=== PATIENT | female | born 1950 | race Caucasian/White ===

== ENCOUNTER 2016-07-22 11:01 | Emergency (ER) | payer MEDICARE ==
[2016-07-22 11:05] VITALS: RESP 20
[2016-07-22] MEDS ORDERED: SODIUM CHLORIDE 0.9% 1,000 ML IV STA ×2 (11:17→13:05)
--- NOTE | 2016-07-22 11:23 | ED ---
Syncope HPI - General Chief Complaint: Syncope Stated Complaint: Fall Time Seen by Provider: 07/22/16 11:17 Source: patient, RN notes reviewed Mode of arrival: ambulatory Limitations: no limitations - History of Present Illness Initial Comments: This is a 66-year-old female with a prior history of a syncopal episode of low blood sugar many years ago who states she did eat a doughnut this morning prior to the events. She states she went downstairs to go to her car she felt lightheaded very hot and then passed out waking up about tenderness later on the ground. She complains of a bump on the back of her head no blurry vision no nausea no vomiting no focal weakness. No palpitations prior to the event. He is not on any diabetic medications. She denies any recent illnesses. She denies any neck or back pain at this time. MD Complaint: loss of consciousness - Related Data Home Medications Medication Instructions Recorded Confirmed Fexofenadine HCl [Joy Allergy] 180 mg PO DAILY 07/22/16 07/22/16 Ibuprofen [Motrin] 200 mg PO Q6HR PRN 07/22/16 07/22/16 Allergies Allergy/AdvReac Type Severity Reaction Status Date / Time Egg Derived Allergy Rash/Hives Verified 07/22/16 11:28 Review of Systems ROS Statement: Those systems with pertinent positive or pertinent negative responses have been documented in the HPI. ROS Other: All systems not noted in ROS Statement are negative. Past Medical History Past Medical History: No Reported History History of Any Multi-Drug Resistant Organisms: None Reported Past Surgical History: No Surgical Hx Reported Past Psychological History: No Psychological Hx Reported Smoking Status: Never smoker Past Alcohol Use History: None Reported Past Drug Use History: None Reported General Exam - General Exam Comments Initial Comments: This is a well developed well-nourished awake alert oriented 3 female she does have a [place] Coma Scale of 15 Limitations: no limitations General appearance: alert, in no apparent distress Head exam: Present: normocephalic, other (There is an area of contusion that is approximately 6 cm in diameter no step-off no crepitation no open wound or abrasion seen. This is over the occipital parietal scalp on the right side.) Eye exam: Present: normal appearance, PERRL, EOMI. Absent: scleral icterus, conjunctival injection, periorbital swelling ENT exam: Present: normal exam, mucous membranes moist Neck exam: Present: normal inspection. Absent: tenderness, meningismus, lymphadenopathy Respiratory exam: Present: normal lung sounds bilaterally. Absent: respiratory distress, wheezes, rales, rhonchi, stridor Cardiovascular Exam: Present: regular rate, normal rhythm, normal heart sounds. Absent: systolic murmur, diastolic murmur, rubs, gallop, clicks GI/Abdominal exam: Present: soft, normal bowel sounds. Absent: distended, tenderness, guarding, rebound, rigid Extremities exam: Present: full ROM, normal capillary refill, other ( Provisional abrasion seen over the proximal lateral right elbow no functional deficits full range of motion no tenderness palpation.). Absent: tenderness, pedal edema, joint swelling, calf tenderness Back exam: Present: normal inspection Neurological exam: Present: alert, oriented X3, CN II-XII intact. Absent: motor sensory deficit Psychiatric exam: Present: normal affect, normal mood Skin exam: Present: warm, dry, intact, normal color. Absent: rash Course Vital Signs 07/22/16 07/22/16 07/22/16 11:02 12:14 13:02 Temperature 98.1 F 98.8 F 98.1 F Pulse Rate 90 74 75 Respiratory 20 20 20 Rate Blood Pressure 163/82 144/80 122/64 O2 Sat by Pulse 98 95 94 L Oximetry 07/22/16 07/22/16 13:28 14:53 Temperature 97.7 F Pulse Rate 68 68 Respiratory 20 20 Rate Blood Pressure 144/66 140/66 O2 Sat by Pulse 94 L 95 Oximetry - Reevaluation(s) Reevaluation #1: 07/22/16 15:16 Reevaluation patient revealed that she was awake alert oriented 3 no complaints other than some localized pain to her scalp. CT the chest is ordered due to a elevated d-dimer. It was later found that the patient daughter also has elevated d-dimer every time she has blood drawn. EKG Findings - EKG Results: EKG: interpreted by [facility], sinus rhythm, normal axis, normal QRS, normal ST/T, no acute changes (Ventricular rate of 86 normal sinus rhythm ID interval 154 QRS duration 80 QT/QTC of 388/464 this is a normal-appearing EKG.) Medical Decision Making - Medical Decision Making Reevaluation reveals patient be awake alert oriented 3. I did a long discussion with her regarding the findings the presentation is consistent with a orthostatic vasovagal episode she was encouraged to drink more water and painful for her doctor return when necessary - Lab Data Result diagrams: 07/22/16 11:30 07/22/16 11:30 Lab Results 07/22/16 07/22/16 07/22/16 Range/Units 11:30 11:30 11:30 WBC 8.4 (3.8-10.6) k/uL RBC 5.47 H (3.80-5.40) m/uL Hgb 17.3 H (11.4-16.0) gm/dL Hct 50.1 H (34.0-46.0) % MCV 91.6 (80.0-100.0) fL MCH 31.6 (25.0-35.0) pg MCHC 34.5 (31.0-37.0) g/dL RDW 12.9 (11.5-15.5) % Plt Count 212 (150-450) k/uL Neutrophils % 75 % Lymphocytes % 17 % Monocytes % 5 % Eosinophils % 1 % Basophils % 1 % Neutrophils # 6.3 (1.3-7.7) k/uL Lymphocytes # 1.4 (1.0-4.8) k/uL Monocytes # 0.4 (0-1.0) k/uL Eosinophils # 0.1 (0-0.7) k/uL Basophils # 0.1 (0-0.2) k/uL PT (9.0-12.0) sec INR (<1.1) APTT (22.0-30.0) sec D-Dimer (<0.60) mg/L FEU Sodium 140 (137-145) mmol/L Potassium 4.1 (3.5-5.1) mmol/L Chloride 104 (98-107) mmol/L Carbon Dioxide 20 L (22-30) mmol/L Anion Gap 16 mmol/L BUN 24 H (7-17) mg/dL Creatinine 0.92 (0.52-1.04) mg/dL Est GFR (MDRD) Af Amer >60 (>60 ml/min/1.73 sqM) Est GFR (MDRD) Non-Af >60 (>60 ml/min/1.73 sqM) Glucose 136 H (74-99) mg/dL Calcium 9.2 (8.4-10.2) mg/dL Magnesium 2.3 (1.6-2.3) mg/dL Total Bilirubin 1.3 (0.2-1.3) mg/dL AST 46 H (14-36) U/L ALT 44 (9-52) U/L Alkaline Phosphatase 78 (38-126) U/L Total Creatine Kinase 119 (30-135) U/L CK-MB (CK-2) 0.7 (0.0-2.4) ng/mL CK-MB (CK-2) Rel Index 0.6 Troponin I <0.012 (0.000-0.034) ng/mL Total Protein 8.4 H (6.3-8.2) g/dL Albumin 4.8 (3.5-5.0) g/dL TSH 2.470 (0.465-4.680) mIU/L Urine Color Urine Appearance (Clear) Urine pH (5.0-8.0) Ur Specific [place] (1.001-1.035) Urine Protein (Negative) Urine Glucose (UA) (Negative) Urine Ketones (Negative) Urine Blood (Negative) Urine Nitrite (Negative) Urine Bilirubin (Negative) Urine Urobilinogen (<2.0) mg/dL Ur Leukocyte Esterase (Negative) Urine RBC (0-5) /hpf Urine WBC (0-5) /hpf Ur Squamous Epith Cells (0-4) /hpf Urine Bacteria (None) /hpf Hyaline Casts (0-2) /lpf Urine Mucus (None) /hpf 07/22/16 07/22/16 Range/Units 11:30 11:30 WBC (3.8-10.6) k/uL RBC (3.80-5.40) m/uL Hgb (11.4-16.0) gm/dL Hct (34.0-46.0) % MCV (80.0-100.0) fL MCH (25.0-35.0) pg MCHC (31.0-37.0) g/dL RDW (11.5-15.5) % Plt Count (150-450) k/uL Neutrophils % % Lymphocytes % % Monocytes % % Eosinophils % % Basophils % % Neutrophils # (1.3-7.7) k/uL Lymphocytes # (1.0-4.8) k/uL Monocytes # (0-1.0) k/uL Eosinophils # (0-0.7) k/uL Basophils # (0-0.2) k/uL PT 10.3 (9.0-12.0) sec INR 1.0 (<1.1) APTT 24.6 (22.0-30.0) sec D-Dimer 1.44 H (<0.60) mg/L FEU Sodium (137-145) mmol/L Potassium (3.5-5.1) mmol/L Chloride (98-107) mmol/L Carbon Dioxide (22-30) mmol/L Anion Gap mmol/L BUN (7-17) mg/dL Creatinine (0.52-1.04) mg/dL Est GFR (MDRD) Af Amer (>60 ml/min/1.73 sqM) Est GFR (MDRD) Non-Af (>60 ml/min/1.73 sqM) Glucose (74-99) mg/dL Calcium (8.4-10.2) mg/dL Magnesium (1.6-2.3) mg/dL Total Bilirubin (0.2-1.3) mg/dL AST (14-36) U/L ALT (9-52) U/L Alkaline Phosphatase (38-126) U/L Total Creatine Kinase (30-135) U/L CK-MB (CK-2) (0.0-2.4) ng/mL CK-MB (CK-2) Rel Index Troponin I (0.000-0.034) ng/mL Total Protein (6.3-8.2) g/dL Albumin (3.5-5.0) g/dL TSH (0.465-4.680) mIU/L Urine Color Yellow Urine Appearance Cloudy H (Clear) Urine pH 5.5 (5.0-8.0) Ur Specific [place] 1.022 (1.001-1.035) Urine Protein 1+ H (Negative) Urine Glucose (UA) Negative (Negative) Urine Ketones Negative (Negative) Urine Blood Negative (Negative) Urine Nitrite Negative (Negative) Urine Bilirubin Negative (Negative) Urine Urobilinogen <2.0 (<2.0) mg/dL Ur Leukocyte Esterase Negative (Negative) Urine RBC 1 (0-5) /hpf Urine WBC 4 (0-5) /hpf Ur Squamous Epith Cells 1 (0-4) /hpf Urine Bacteria Rare H (None) /hpf Hyaline Casts 3 H (0-2) /lpf Urine Mucus Few H (None) /hpf - Radiology Data Radiology results: report reviewed (I did review the imaging and reports no acute findings are seen including no evidence of pulmonary and was very CT the brain shows no acute findings other than a scalp contusion), image reviewed Disposition Clinical Impression: Vasovagal syncope, Syncope due to orthostatic hypotension, Dehydration, Scalp contusion, Concussion Disposition: HOME SELF-CARE Condition: Good Instructions: Dehydration (ED), Concussion (ED), Scalp Contusion in Adults (ED) , Syncope (ED)
[2016-07-22 11:44] LABS: Basophils # (A) 0.1 k/uL (0-0.2); Basophils % (A) 1 %; CH 31.7; CHCM 34.8; Eosinophils # (A) 0.1 k/uL (0-0.7); Eosinophils % (A) 1 %; HCT 50.1 % (34.0-46.0); HDW 2.75; HGB 17.3 gm/dL (11.4-16.0); Luc # (Auto) 0.17; Luc % (Auto) 2; Lymphocytes # (A) 1.4 k/uL (1.0-4.8); Lymphocytes % (A) 17 %; MCH 31.6 pg (25.0-35.0); MCHC 34.5 g/dL (31.0-37.0); MCV 91.6 fL (80.0-100.0); Mean Platelet Volume 7.8; Monocytes # (A) 0.4 k/uL (0-1.0); Monocytes % (A) 5 %; Neutrophils # (A) 6.3 k/uL (1.3-7.7); Neutrophils % (A) 75 %; RBC 5.47 m/uL (3.80-5.40); RDW 12.9 % (11.5-15.5); WBC 8.4 k/uL (3.8-10.6); WBC (Perox) 8.61
--- NOTE | 2016-07-22 11:49 | XR ---
EXAMINATION TYPE: XR chest 2V DATE OF EXAM: 07/22/2016 11:41 AM COMPARISON: NONE HISTORY: Chest pain TECHNIQUE: Frontal and lateral views of the chest are obtained. FINDINGS: There is no focal air space opacity. No evidence for pnuemothorax.No pleural effusion. The cardiac silhouette size is within normal limits. The osseous structures are grossly intact. IMPRESSION: 1. No acute cardiopulmonary process.
[2016-07-22 11:57] LABS: Partial Thromboplastin Time 24.6 sec (22.0-30.0); Prothrombin Time 10.3 sec (9.0-12.0)
[2016-07-22 12:00] LABS: ALT 44 U/L (9-52); AST 46 U/L (14-36); Alkaline Phosphatase 78 U/L (38-126); Anion Gap 16 mmol/L; Blood Urea Nitrogen 24 mg/dL (7-17); Calcium 9.2 mg/dL (8.4-10.2); Carbon Dioxide 20 mmol/L (22-30); Chloride 104 mmol/L (98-107); Glucose 136 mg/dL (74-99); Magnesium 2.3 mg/dL (1.6-2.3); Non-African American GFR(MDRD) >60 (>60 ml/min/1.73 sqM); Potassium 4.1 mmol/L (3.5-5.1); Sodium 140 mmol/L (137-145); Total Bilirubin 1.3 mg/dL (0.2-1.3); Total Protein 8.4 g/dL (6.3-8.2)
[2016-07-22 12:04] LABS: Creatine Kinase 119 U/L (30-135)
[2016-07-22 12:12] LABS: Appearance,Urine Cloudy (Clear); Bacteria,Urine Rare /hpf; Bilirubin,Urine Negative (Negative); Glucose,Urine (UA) Negative (Negative); Ketones,Urine Negative (Negative); Leukocyte Esterase,Urine Negative (Negative); Mucus,Urine Few /hpf; Nitrite,Urine Negative (Negative); PH, Urine 5.5 (5.0-8.0); Particle Count 10710; Protein,Urine 1+ (Negative); RBC,Urine 1 /hpf (0-5); Specific Gravity,Urine 1.022 (1.001-1.035); Squamous Epithelial Cell,Urine 1 /hpf (0-4); UA Billing (MACRO vs. MICRO) MICRO; Urobilinogen,Urine <2.0 mg/dL (<2.0); WBC,Urine 4 /hpf (0-5)
[2016-07-22] MEDS ORDERED: ACETAMINOPHEN IV (For NPO) 1,000 MG in EMPTY BAG 1 BAG IVPB STA (12:16)
[2016-07-22 12:18] LABS: Creatine Kinase MB 0.7 ng/mL (0.0-2.4); Troponin I <0.012 ng/mL (0.000-0.034)
--- NOTE | 2016-07-22 12:52 | CT ---
EXAMINATION TYPE: CT brain rachel vergara DATE OF EXAM: 07/22/2016 11:55 AM COMPARISON: NONE HISTORY: Patient experienced syncopal episode with fall today. Patient hit back of head. Patient co mplains of dizziness at time of exam. Patient denies neck pain. CT DLP: 1358.4 mGycm Automated exposure control for dose reduction was used. TECHNIQUE: CT scan of the head and cervical spine are performed without contrast. FINDINGS: There is no acute intracranial hemorrhage, mass effect, or midline shift identified. The ventricles and sulci are within normal limits in size. Posterior parietal cephalohematoma is present . There is cortical atrophy. Cerebral vascular calcifications are present. The globes are intact and the visualized sinuses are clear. Cervical spine is visualized in its entirety from C1 through upper thoracic levels and demonstrates s atisfactory alignment without evidence of acute fracture or dislocation. Prevertebral soft tissue ap pears within normal limits. Multilevel facet arthropathy change is noted. The C1-C2 articulation is unremarkable. IMPRESSION: 1. There is no acute fracture or dislocation evident in the cervical spine. 2. No acute intracranial hemorrhage, mass effect, or midline shift is seen.
[2016-07-22] MEDS ORDERED: RX INFO: IV CONTRAST WAS GIVEN 1 EACH MISC MISCELLANE PRN (13:21)
--- NOTE | 2016-07-22 15:03 | CT ---
EXAMINATION TYPE: CT angio chest DATE OF EXAM: 07/22/2016 2:34 PM COMPARISON: Chest x-ray same date HISTORY: Pain, PE, Syncope CT DLP: 292.90 mGycm Automated exposure control for dose reduction was used. CONTRAST: CTA scan of the thorax is performed with IV Contrast, patient injected with 100 ml mL of Omnipaque 30 0, pulmonary embolism protocol. MIP images are created and reviewed. 3D reconstructed images are cr eated on an independent workstation and reviewed. FINDINGS: LUNGS: The lungs are grossly clear, there is no concerning parenchymal mass or nodule identified. T here is no pleural effusion or pneumothorax seen. The tracheobronchial tree is patent. AORTA: No additional significant abnormality is seen. MEDIASTINUM: There is satisfactory enhancement of the pulmonary artery and its branches, there is no CT evidence for pulmonary embolism. There are no greater than 1 cm hilar or mediastinal lymph nodes, mild right hilar adenopathy suspected. Coronary artery calcifications present. No pericardial effus ion is seen. OTHER: No additional significant abnormality is seen. Hiatal hernia. IMPRESSION: PULMONARY EMBOLISM IS NOT EVIDENT. SUSPECT RIGHT HILAR ADENOPATHY, CONSIDER FOLLOW-UP
[2016-07-22 15:33] VITALS: BP 159/79; PULSE 72; TEMP 98.1
== END 2016-07-22 15:38 | disposition home or self-care (01) ==
LOC: EC 11:01
DX: S06.0X9A Concussion with loss of consciousness of unspecified duration, initial encounter (principal); S00.03XA Contusion of scalp, initial encounter; S50.311A Abrasion of right elbow, initial encounter; I95.1 Orthostatic hypotension; E86.0 Dehydration; Z79.899 Other long term (current) drug therapy; Z91.012 Allergy to eggs; W18.30XA Fall on same level, unspecified, initial encounter; Y93.01 Activity, walking, marching and hiking
CPT/HCPCS: 36415; 93005; 85379; 80053; 84443; 82550; 82553; 83735; 84484; 85025; 85610; 85730; 81001; 71020; 72125; 70450; 71275; 99285; 96374; 96361 ×3; Q9967; J0131